=== PATIENT | female | born 1985 | race Caucasian/White ===

== ENCOUNTER 2022-07-31 16:26 | Emergency (ER) | payer OTHER, SELFPAY ==
[2022-07-31 16:27] VITALS: BP 134/100; PULSE 106; RESP 16; TEMP 36.8; O2SAT 98; BMI 28.3
--- NOTE | 2022-07-31 16:38 | RAD_ITS ---
INDICATION: Trauma, pain EXAMINATION/TECHNIQUE: X-RAY - LEFT XR Foot Min 3 Views 3 VIEWS COMPARISON: None. FINDINGS: SOFT TISSUES: No soft tissue swelling or gas. No radiopaque foreign body. BONES/JOINTS: No acute fracture or subluxation.. Normal alignment. Preservation of the joint space.. No sclerotic or destructive changes observed. There is mild osteophyte formation along lateral aspect of the base of the first metatarsal. RAD/Foot min 3 Views IMPRESSION: 1. No acute fractures malalignment or joint space abnormality. 2. Mild osteophyte formation noted at the base of the first metatarsal Electronically Signed: Shawn Nicole MD at 17:09 EST ,
--- NOTE | 2022-07-31 16:38 | EDS_ITS ---
HPI History of Present Illness HPI Narrative: 37-year-old female presents with injury to her left foot that she sustained this morning at around 8:00 to 830, almost 8 hours ago. She states she was trying to lunge her horse, running with it, and the outdoor ring and when it jumped, she jumped with it. She may have a twisted her forefoot. She denies hitting her head or falling, no loss of consciousness. She states whenever she weightbears and walks she has pain across the top of her left foot. She states she had an injury this summer in February when a horse fell onto her left ankle while it was sedated, injuring the crease of her ankle and foot, but that had resolved. She has not taken anything for analgesia. She denies other injuries but is here for the evaluation of the pain across her left foot. Chief Complaint: Lower Extremity Injury PFSH PFSH Allergy/AdvReac Type Severity Reaction Status Date / Time No Known Allergies Allergy Verified 07/31/22 16:29 Social History Smoking Status: Never smoker ROS ROS ED ROS Narrative Constitutional: No fever, no chills. HEENT: No sore throat. No neck pain. No loss of vision. No rhinorrhea. Cardiovascular: No chest pain. No palpitations. No pedal edema. Respiratory: No cough, no shortness of breath. Abdominal: No abdominal pain. No nausea. No vomiting. Genitourinary: No dysuria. No hematuria. Musculoskeletal: No myalgias. Left foot pain worse with weightbearing and walking. Neurologic: No headaches. No dizziness. No lightheadedness. Skin: No rash. No change in color. Psychiatric: No depression. No anxiety. EXAM Physical Exam Narrative Exam Narrative: Afebrile. Vital signs noted. HEENT: Normocephalic. Atraumatic. PERRL, EOMI. Neck soft and supple. No point tenderness or step off. Cardiovascular: Regular rate and rhythm. No murmurs, rubs, or gallops appreciated. Respiratory: No tachypnea. Lungs clear to auscultation bilaterally. Gastrointestinal: Abdomen soft, nontender, with normoactive bowel sounds. No rebound or guarding. Neurological: Awake. Alert. Nonfocal, nonlateralizing. Skin: No rash. Normal color. No pallor. Musculoskeletal: No pedal edema. Full range of motion extremities. Mild tenderness to palpation over tarsal bones. No pain at base of fifth metatarsal. Palpable dorsalis pedis pulse. Palpable Achilles tendon without palpable deficit. No proximal fibular head tenderness. Const Vital Signs: 07/31/22 16:27 Temperature 98.2 F Temperature Source Temporal Pulse Rate 106 H Respiratory Rate 16 Blood Pressure 134/100 H Blood Pressure Mean 111 Pulse Ox 98 Oxygen Delivery Method Room Air MDM MDM MDM Narrative Medical decision making narrative: Patient administered ibuprofen 600 mg orally here. X-rays were obtained of the left foot and 3 views which I interpreted. My interpretation of her x-ray shows no evidence of acute fracture. She will be placed in an Ignacio wrap and a postoperative shoe and will continue ice and elevation at home along with [id number] analgesics. She was referred to podiatry on-call for follow- up, Dr. Catherine. She and her state they are not from the area. Hence, she will follow-up with her primary care physician for referral to orthopedics/podiatry as needed. I feel she can be discharged safely home with follow-up. Return instructions were reviewed. Disposition is discharged home in stable condition. Radiography Diagnostic Testing: Clinical Impression(s) from Imaging Studies Foot X-Ray 07/31/22 16:38 IMPRESSION: 1. No acute fractures malalignment or joint space abnormality. 2. Mild osteophyte formation noted at the base of the first metatarsal Electronically Signed: Shawn Nicole MD at 17:09 EST , Discharge Plan Triage Chief Complaint: Lower Extremity Injury ED Provider: Santo Yousif Dx/Rx/DC Orders Clinical Impression: Sprain of left foot, Left foot pain Instructions: ED Foot Sprain Primary Care Provider: Care Physician,No Primary Referrals: Kip Catherine DPM [Med Staff - Active Staff] - 1 Week if not [facility] Doctor,Out of [Non-Staff] - Disposition Disposition: Home, Self Care
[2022-07-31] MEDS: Ibuprofen 600 MG Tablet PO (16:50)
== END 2022-07-31 17:19 | disposition home or self-care (01) ==
LOC: ED 16:47
PROVIDERS: Emergency Provider Emergency Medicine; Visit Provider Emergency Medicine
DX: S93.602A Unspecified sprain of left foot, initial encounter (principal); X50.1XXA Overexertion from prolonged static or awkward postures, initial encounter
CPT/HCPCS: 73630; 99284